=== PATIENT | female | born 1990 | race Caucasian/White ===

== ENCOUNTER 2024-11-17 10:25 | Emergency (ER) | payer OTHER ==
[~2024-11-17] VITALS: Ht 162.6 cm; Wt 85.7 kg
[2024-11-17] MEDS: IV NORMAL SALINE 1000 ML BAG IV ONE (11:01)
[2024-11-17] MEDS ORDERED: diphenhydrAMINE 50 MG/1 ML VIAL ONE (11:03)
[2024-11-17] MEDS ORDERED: methylPREDNISolone SOD SUCC 125 MG/2 ML VIAL ONE (11:03)
[2024-11-17] MEDS: diphenhydrAMINE 50 MG/1 ML VIAL IV ONE (11:03)
[2024-11-17] MEDS ORDERED: FAMOTIDINE. 20 MG/2 ML VIAL IV ONE (11:03)
[2024-11-17] MEDS: FAMOTIDINE. 20 MG/2 ML VIAL IV ONE (11:05)
[2024-11-17] MEDS: methylPREDNISolone SOD SUCC 125 MG/2 ML VIAL IV ONE (11:07)
[2024-11-17 11:14] LABS: BASOPHILS % (AUTO) 0.4 % (0.0-2.0); EOSINOPHILS # (AUTO) 0.1 K/uL (0.0-0.7); EOSINOPHILS % (AUTO) 0.8 % (0.0-7.0); HEMATOCRIT 40.8 % (31.2-41.9); HEMOGLOBIN 13.8 g/dL (10.9-14.3); LYMPHOCYTES # (AUTO) 1.4 K/uL (0.8-4.8); MEAN CORPUSCULAR HEMOGLOBIN 31.6 uug (24.7-32.8); MEAN CORPUSCULAR HGB CONC 34 g/dL (32.3-35.6); MEAN CORPUSCULAR VOLUME 93.2 fL (75.5-95.3); MONOCYTES # (AUTO) 0.4 K/uL (0.1-1.30); MONOCYTES % (AUTO) 6.2 % (0.0-11.0); NEUTROPHILS # (AUTO) 5.1 K/uL (1.8-8.9); NEUTROPHILS % (AUTO) 72.6 % (38.5-71.5); PLATELET COUNT (AUTO) 299 K/uL (179-408); RED BLOOD CELL COUNT(AUTO) 4.38 MIL/uL (3.63-4.92); RED CELL DISTRIBUTION WIDTH 13.2 % (12.3-17.7); WHITE BLOOD COUNT (AUTO) 7.1 K/uL (3.8-11.8)
[2024-11-17 11:26] LABS: CALCIUM 8.7 mg/dL (8.5-10.1); CREATININE 0.8 mg/dL (0.6-1.3); DIFFERENTIAL COMMENT 1; POTASSIUM 4.1 mmol/L (3.5-5.1)
[2024-11-17 12:00] LABS: ALBUMIN 3.7 g/dL (3.4-5.0); BILIRUBIN,DIRECT 0.1 mg/dL (0.0-0.2); BILIRUBIN,TOTAL 0.6 mg/dL (0.2-1.0); TOTAL PROTEIN, SERUM 7.2 g/dL (6.4-8.2)
[2024-11-17] MEDS ORDERED: FAMO-132 PO (12:31)
[2024-11-17] MEDS ORDERED: DIPH25CA83 PO (12:31)
[2024-11-17] MEDS ORDERED: PRED20TA PO (12:31)
[2024-11-17 13:04] VITALS: BP 125/81; O2SAT 99
== END 2024-11-17 13:18 | disposition home or self-care (01) ==
LOC: ER 10:25
DX: T78.49XA Other allergy, initial encounter (principal); L50.9 Urticaria, unspecified; R10.9 Unspecified abdominal pain; Z79.52 Long term (current) use of systemic steroids; Z90.49 Acquired absence of other specified parts of digestive tract; Z91.018 Allergy to other foods; Z91.09 Other allergy status, other than to drugs and biological substances; X58.XXXA Exposure to other specified factors, initial encounter
CPT/HCPCS: 99284; 96374; 96361; 96375; 80076; 80048; 85025; 36415; J2919; J1200; J1308; J7040; A4606; A4663

== ENCOUNTER 2025-02-03 17:19 | Emergency (ER) | payer OTHER ==
[~2025-02-03] VITALS: Ht 160 cm; Wt 84.4 kg
[~2025-02-03 17:19] MED LIST: DIPH25CA83 PO; FAMO-132 PO; PRED20TA PO
[2025-02-03] MEDS ORDERED: ONDANSETRON 4 MG/2 ML VIAL ONE (19:22)
[2025-02-03] MEDS ORDERED: HYDROMORPHONE 1 MG/1 ML DISP.SYRIN ONE (19:22)
[2025-02-03] MEDS: HYDROMORPHONE 1 MG/1 ML DISP.SYRIN IV ONE (19:28)
[2025-02-03] MEDS: IV NS 1000 ML 1,000 ML IV ONE (19:29)
[2025-02-03] MEDS: ONDANSETRON 4 MG/2 ML VIAL IV ONE (19:30)
[2025-02-03 19:32] LABS: *BILIRUBIN,URIN NEGATIVE (NEGATIVE); *BLOOD, URINE 3+ (NEGATIVE); *COLOR,URINE YELLOW (YELLOW); *KETONES,URINE 1+ (NEGATIVE); *PROTEIN,URINE NEGATIVE (NEGATIVE); *UROBILINOGEN,URINE 0.2 E.U./dl (NORMAL); LEUKOCYTE ESTERASE ,URINE 1+ (NEGATIVE); NITRITE, URINE NEGATIVE (NEGATIVE); UGLUCOSE NEGATIVE (NEGATIVE)
[2025-02-03 19:33] LABS: *CLARITY,URINE SLIGHTLY HAZY (CLEAR)
[2025-02-03 19:34] LABS: *URINE HCG, QUAL NEGATIVE (NEGATIVE)
[2025-02-03 19:37] LABS: PLATELET COUNT (AUTO) 284 K/uL (179-408); RED BLOOD CELL COUNT(AUTO) 4.43 MIL/uL (3.63-4.92); RED CELL DISTRIBUTION WIDTH 12.9 % (12.3-17.7); WHITE BLOOD COUNT (AUTO) 8.4 K/uL (3.8-11.8)
[2025-02-03 19:45] LABS: *AMPHETAMINE, URINE NEGATIVE (NEGATIVE); *BARBITURATE, URINE NEGATIVE (NEGATIVE); *BENZODIAZEPINE, URINE NEGATIVE (NEGATIVE); *CANNABINOID, URINE POSITIVE (NEGATIVE); *COCCAINE, URINE NEGATIVE (NEGATIVE); *OPIATE, URINE NEGATIVE (NEGATIVE); *PHENCYCLIDINE SCREEN,URINE NEGATIVE (NEGATIVE); FENTANYL, URINE NEGATIVE (NEGATIVE)
[2025-02-03 19:52] LABS: SQUAMOUS EPITHELIAL CELL,UR MANY /HPF (NONE SEEN)
[2025-02-03 19:58] LABS: CREATININE 0.7 mg/dL (0.6-1.3); SODIUM SERUM 140.0 mmol/L (136-145); UREA NITROGEN, BLOOD 8.0 mg/dL (7-18)
[2025-02-03 20:03] LABS: ASPARTATE AMINOTRANSFERASE 20.0 U/L (15-37); TOTAL PROTEIN, SERUM 8.2 g/dL (6.4-8.2)
[2025-02-03] MEDS ORDERED: SWABABLE VALVE TRANSFER SET EA MC ONE (20:30)
[2025-02-03] MEDS ORDERED: IOHEXOL 300MG/ML 100 ML INFUS..BTL ONE (20:30)
[2025-02-03] MEDS ORDERED: IV NORMAL SALINE 250 ML IV ONE (20:30)
[2025-02-03] MEDS ORDERED: POTASSIUM CHLORIDE 20 MEQ TAB.PRT.SR ONE (21:08)
[2025-02-03] MEDS: POTASSIUM CHLORIDE 20 MEQ TAB.PRT.SR PO ONE (21:10)
[2025-02-03 21:35] VITALS: BP 133/83
[2025-02-03 23:16] VITALS: BP 133/83; O2SAT 95
== END 2025-02-03 23:30 | disposition left against medical advice (07) ==
LOC: ER 17:31
DX: R10.11 Right upper quadrant pain (principal); R11.2 Nausea with vomiting, unspecified; Z79.52 Long term (current) use of systemic steroids; Z91.018 Allergy to other foods; Z60.2 Problems related to living alone; Z79.899 Other long term (current) drug therapy
CPT/HCPCS: 99285; 74177; 96374; 96361; 96375; 80053; 84703; 83690; 85025; 87086; 36415; 83605; 80307; 81001; J2405; Q9967; J1171; J7040; A4606; A4663

== ENCOUNTER 2025-02-04 09:36 | Emergency (ER) | payer OTHER ==
[~2025-02-04] VITALS: Ht 160 cm; Wt 84.4 kg
[2025-02-04] MEDS ORDERED: METOCLOPRAMIDE HCL 10 MG/2 ML VIAL ONE (10:52)
[2025-02-04] MEDS ORDERED: KETOROLAC TROMETHAMINE 15 MG INJ ONE (10:52)
[2025-02-04] MEDS: KETOROLAC TROMETHAMINE 15 MG INJ IVP ONE (10:56)
[2025-02-04] MEDS: METOCLOPRAMIDE HCL 10 MG/2 ML VIAL IV ONE (10:56)
[2025-02-04 11:18] LABS: PLATELET COUNT (AUTO) 295 K/uL (179-408); RED BLOOD CELL COUNT(AUTO) 4.40 MIL/uL (3.63-4.92); RED CELL DISTRIBUTION WIDTH 13.1 % (12.3-17.7); WHITE BLOOD COUNT (AUTO) 6.8 K/uL (3.8-11.8)
[2025-02-04 11:30] LABS: CREATININE 0.7 mg/dL (0.6-1.3); SODIUM SERUM 142 mmol/L (136-145); UREA NITROGEN, BLOOD 7 mg/dL (7-18)
[2025-02-04 11:37] LABS: ASPARTATE AMINOTRANSFERASE 21 U/L (15-37); TOTAL PROTEIN, SERUM 8.0 g/dL (6.4-8.2)
[2025-02-04 11:46] LABS: PREGNANCY TEST SERUM QUAN < 1 miul/L (0-6)
[2025-02-04] MEDS ORDERED: BUPRENORPHINE HCL 2 MG TAB.SUBL SL ONE (11:46)
[2025-02-04] MEDS: BUPRENORPHINE HCL 2 MG TAB.SUBL SL ONE (11:49)
[2025-02-04 13:29] VITALS: BP 110/64
[2025-02-04 14:15] VITALS: BP 117/72; O2SAT 99
== END 2025-02-04 14:16 | disposition home or self-care (01) ==
LOC: ER 09:36
DX: R10.11 Right upper quadrant pain (principal); R11.2 Nausea with vomiting, unspecified; R10.2 Pelvic and perineal pain; Z79.52 Long term (current) use of systemic steroids; Z90.49 Acquired absence of other specified parts of digestive tract; Z60.2 Problems related to living alone; Z91.018 Allergy to other foods; Z91.09 Other allergy status, other than to drugs and biological substances
CPT/HCPCS: 99285; 96374; 76705; 96375; 80076; 80048; 83690; 85025; 85730; 84484; 84702; 36415; J1885; J2765; A4606; A4663